=== PATIENT | male | born 1950 | race Caucasian/White ===

== ENCOUNTER → 2016-09-18 | Outpatient (CLI) | payer MEDICARE, BC, OTHER | END | disposition home or self-care (01) | LOC: RAD.S 09:50 | DX: Z08 Encounter for follow-up examination after completed treatment for malignant neoplasm (principal); K76.0 Fatty (change of) liver, not elsewhere classified; Z85.51 Personal history of malignant neoplasm of bladder; Z98.890 Other specified postprocedural states ==